=== PATIENT | female | born 1995 | race Caucasian/White ===

== ENCOUNTER 2017-03-10 19:25 | Emergency (ER) | payer MEDICAID ==
[2017-03-10 22:09] LABS: BASOPHIL % 0.4 % (0-2); PLATELET COUNT 243 x10^3mcL (130-400); RED CELL DISTRIBUTION WIDTH 13.3 % (11.5-14.5)
[2017-03-10 22:20] LABS: ALBUMIN 4.1 g/dL (3.4-5.0); ALKALINE PHOSPHATASE 53 U/L (46-116); ALT/SGPT 15 U/L (14-59); AMYLASE 50 U/L (25-115); AST/SGOT 14 U/L (15-37); BILIRUBIN TOTAL 0.2 mg/dL (0.20-1.00); CARBON DIOXIDE 25.9 mmol/L (21-32); CHLORIDE SERUM 103 mmol/L (98-107); CREATININE SERUM 0.8 mg/dL (0.6-1.0); GFR1 > 60 mL/min; GLUCOSE SERUM 95 mg/dL (74-106); LIPASE 136 IU/L (73-393); POTASSIUM SERUM 4.1 mmol/L (3.5-5.1); SODIUM SERUM 135 mmol/L (136-145)
[2017-03-10 22:24] LABS: CALCIUM 8.9 mg/dL (8.5-10.1)
[2017-03-11 02:01] VITALS: BP 94/58
== END 2017-03-11 02:01 | disposition home or self-care (01) ==
LOC: ED 19:25
PROVIDERS: Emergency Medicine Emergency Medical Services
DX: N83.9 Noninflammatory disorder of ovary, fallopian tube and broad ligament, unspecified (principal)
CPT/HCPCS: J2270; J2405; Q0092

== ENCOUNTER 2019-03-17 17:16 | Emergency (ER) | payer OTHER ==
[~2019-03-17] VITALS: Ht 162.6 cm; Wt 53.5 kg
[2019-03-17 17:37] VITALS: Ht 162.6 cm; Wt 53.5 kg
[2019-03-17 22:06] VITALS: BP 110/59
== END 2019-03-17 22:06 | disposition home or self-care (01) ==
LOC: ED 17:16
DX: N89.8 Other specified noninflammatory disorders of vagina (principal); M25.561 Pain in right knee; V49.9XXA Car occupant (driver) (passenger) injured in unspecified traffic accident, initial encounter; Y93.I9 Activity, other involving external motion; Y92.413 State road as the place of occurrence of the external cause; Y99.8 Other external cause status
CPT/HCPCS: 87491; 87591